=== PATIENT | female | born 1975 | race African-American/Black ===

== ENCOUNTER 2019-03-23 07:10 | Emergency (ER) | payer MEDICARE, MEDICAID ==
[~2019-03-23] VITALS: Ht 165.1 cm; Wt 67.7 kg
[~2019-03-23 07:10] MED LIST: ARIP10TA8 PO
[2019-03-23] MEDS ORDERED: RISP1 PO (07:12)
[2019-03-23 07:15] VITALS: BP 135/83
== END 2019-03-23 07:43 | disposition home or self-care (01) ==
LOC: EMS 07:13
DX: K04.7 Periapical abscess without sinus (principal); K11.20 Sialoadenitis, unspecified; F31.9 Bipolar disorder, unspecified; F20.9 Schizophrenia, unspecified

== ENCOUNTER 2021-01-22 19:51 | Emergency (ER) | payer MEDICARE, MEDICAID ==
[~2021-01-22] VITALS: Ht 165.1 cm; Wt 61.8 kg
[~2021-01-22 19:51] MED LIST changes: -ARIP10TA8 PO; +RISP1TAB48 PO
[2021-01-22] MEDS ORDERED: MAG HYDROX/AL HYDROX/SIMETH ES 30 ML SUSPENSION UDCUP PO ONE (20:45)
[2021-01-22 21:46] VITALS: BP 128/80
== END 2021-01-22 21:51 | disposition home or self-care (01) ==
LOC: EMS 19:56
DX: R10.13 Epigastric pain (principal); F31.9 Bipolar disorder, unspecified; F20.9 Schizophrenia, unspecified
CPT/HCPCS: 99282; 99283

== ENCOUNTER 2023-01-01 07:50 | Emergency (ER) | payer OTHER ==
[~2023-01-01] VITALS: Ht 170.2 cm; Wt 72.7 kg
[2023-01-01] MEDS ORDERED: IBUP-1492 PO (10:24)
[2023-01-01] MEDS ORDERED: AMOX1TAB15 PO (10:24)
[2023-01-01 10:28] VITALS: BP 110/86
== END 2023-01-01 10:40 | disposition home or self-care (01) ==
LOC: EMS 08:04
DX: K04.7 Periapical abscess without sinus (principal); F31.9 Bipolar disorder, unspecified; F20.9 Schizophrenia, unspecified
CPT/HCPCS: 99283

== ENCOUNTER → 2024-09-12 | Emergency (ER) | payer OTHER ==
[~2024-09-12] VITALS: Ht 170.2 cm; Wt 73.0 kg
[~2024-09-12] MED LIST changes: +ACET-66 PO; +AMOX1TAB15 PO; +CEPH-558 PO; +IBUP-1492 PO; +IBUP-1554 PO; +LAMO25TA36 PO; +ONDA-104 PO
[2024-09-12] MEDS: SODIUM CHLORIDE 0.9% 1,000 ML IV ONE (17:42)
[2024-09-12] MEDS: ONDANSETRON HCL 4 MG/2 ML VIAL IVP ONE (17:42)
[2024-09-12 18:15] LABS: BASOPHILS % (AUTO) 0.2 % (0.0-2.0); EOSINOPHILS % (AUTO) 0.3 % (1.0-6.0); HEMATOCRIT 38.6 % (36-46); HEMOGLOBIN 12.8 g/dL (12.0-16.0); LYMPHOCYTES # (AUTO) 1.2 K/uL (1.0-4.8); LYMPHOCYTES % (AUTO) 11.8 % (22.0-44.0); MEAN CORPUSCULAR HEMOGLOBIN 30.4 pg (26.0-34.0); MEAN CORPUSCULAR HGB CONC 33.2 G/dL (31.0-37.0); MEAN CORPUSCULAR VOLUME 92 fL (80-100); MONOCYTES # (AUTO) 1.1 K/uL (0.1-1.0); MONOCYTES % (AUTO) 11.6 % (2.0-9.0); NEUTROPHILS # (AUTO) 7.5 K/uL (1.8-7.7); NEUTROPHILS % (AUTO) 76.1 % (40.0-70.0); PLATELET COUNT (AUTO) 142 K/uL (150-450); RED BLOOD CELL COUNT(AUTO) 4.21 MIL/uL (4.00-5.20); RED CELL DISTRIBUTION WIDTH 13.2 % (11.5-14.5); WHITE BLOOD COUNT (AUTO) 9.8 K/uL (4.5-11.0)
[2024-09-12 18:26] LABS: ANION GAP 10 mmol/L (8-16); CARBON DIOXIDE 27 mmol/L (22-29); CHLORIDE 105 mmol/L (98-107); CREATININE 1.44 mg/dL (0.60-1.30); GLOMERULAR FILTR. RATE CALC 47 mL/min (>60); GLUCOSE,RANDOM 93 mg/dL (70-110); LIPASE 20 U/L (16-77); POTASSIUM 3.5 mmol/L (3.5-5.1); SODIUM SERUM 142 mmol/L (136-145); UREA NITROGEN, BLOOD 17 mg/dL (7-18)
[2024-09-12 18:30] LABS: TROPONIN I-HIGH SENSITIVITY 9 ng/L (<51)
[2024-09-12 19:07] LABS: APPEARANCE,URINE HAZY (CLEAR); BILIRUBIN,URINE NEGATIVE (NEGATIVE); COLOR,URINE YELLOW (YELLOW); GLUCOSE, URINE (UA) NEGATIVE (NEGATIVE); LEUKOCYTE ESTERASE ,URINE LARGE (NEGATIVE); NITRATE,URINE POSITIVE (NEGATIVE); OCCULT BLOOD,URINE MODERATE (NEGATIVE); PH,URINE 5.5 (5.0-8.0); PROTEIN,URINE TRACE mg/dL (NEGATIVE); SPECIFIC GRAVITIY, URINE 1.026 (1.003-1.030); UROBILINOGEN,URINE <=1.0 mg/dL (<=1.0)
[2024-09-12 19:33] LABS: BACTERIA,URINE Many /HPF (None Seen); MUCUS,URINE Few LPF (None Seen); SQUAMOUS EPITHELIAL CELL,UR Few /LPF (None Seen)
[2024-09-12 20:22] VITALS: BP 127/70; PULSE 75; RESP 16; TEMP 97.9; O2SAT 98
[2024-09-12] MEDS: ACETAMINOPHEN 500 MG TABLET PO ONE (20:29)
[2024-09-12] MEDS: KETOROLAC TROMETHAMINE 30 MG/ML VIAL IVP ONE (20:29)
[2024-09-12] MEDS: ONDANSETRON 4 MG TABLET PO ONE (20:29)
== END | disposition home or self-care (01) ==
LOC: EMS 17:02
DX: N39.0 Urinary tract infection, site not specified (principal); R11.10 Vomiting, unspecified; F20.9 Schizophrenia, unspecified; F31.9 Bipolar disorder, unspecified; Z79.899 Other long term (current) drug therapy
CPT/HCPCS: 99284; 96374; 96361; 80048; 81001; 83605; 83690; 84484; 85025; 87086; 36415; 93005; J2405; J7030